=== PATIENT | male | born 1980 | race Caucasian/White ===

== ENCOUNTER 2016-10-27 17:03 | Emergency (ER) | payer OTHER ==
[2016-10-27] MEDS ORDERED: Ketorolac INJ* 30 MG/ML 1 ML VIAL IV PUSH ONE (18:25)
[2016-10-27] MEDS ORDERED: Morphine INJ* 4 MG/ML 1 ML SYRINGE IV ONE (18:25)
--- NOTE | 2016-10-27 18:34 | RAD ---
HISTORY: Limited range of motion, pain COMPARISONS: None VIEWS: 3, frontal and axial views of the left shoulder, with the left arm held in abduction. FINDINGS: BONE DENSITY: Normal. BONES: There is no displaced fracture. JOINTS: There is no arthropathy. ALIGNMENT: There is no dislocation. SOFT TISSUES: Unremarkable. OTHER FINDINGS: None. IMPRESSION: LIMITED STUDY. NO ACUTE OSSEOUS INJURY. IF SYMPTOMS PERSIST, RECOMMEND REPEAT IMAGING.
[2016-10-27] MEDS ORDERED: Diazepam SYRINGE* 5 MG/ML SYRINGE IV ONE ×2 (19:56→20:48)
[2016-10-27] MEDS ORDERED: HYDROmorphone* 1 MG/ML 1 ML SYR IV SLOW PU ONE ×2 (19:56→23:01)
--- NOTE | 2016-10-27 23:24 | ED ---
Upper Extremity Pain - HPI Summary HPI Summary: 36M presents with left shoulder dislocation today. He states that he fell onto his outstretched arm and felt a pop. He states it feels like it is dislocated. He denies any previous dislocation. He denies any numbness or tingling. He can not lower arm below 90 degrees. He is right handed. He denies any elbow or wrist pain. He has not taken anything for pain. - History of Current Complaint Chief Complaint: EDExtremityUpper Stated Complaint: LEFT SHOULDER DISLOCTION Time Seen by Provider: 10/27/16 18:24 - Allergies/Home Medications Allergies/Adverse Reactions: Allergies Allergy/AdvReac Type Severity Reaction Status Date / Time No Known Allergies Allergy Verified 10/27/16 20:24 PMH/Surg Hx/FS Hx/Imm Hx Endocrine/Hematology History: Denies: Hx Anticoagulant Therapy Cardiovascular History: Denies: Hx Myocardial Infarction Infectious Disease History: No Infectious Disease History: Denies: Traveled Outside the [place] in Last 30 Days - Family History Known Family History: Positive: Cardiac Disease - Social History Alcohol Use: Daily Substance Use Type: Reports: None Smoking Status (MU): Never Smoked Tobacco Review of Systems Negative: Fever Negative: Chest Pain Negative: Shortness Of Breath Positive: Myalgia - left shoulder pain All Other Systems Reviewed And Are Negative: Yes Physical Exam Triage Information Reviewed: Yes Vital Signs On Initial Exam: Initial Vitals Temp Pulse Resp BP Pulse Ox 98.4 F 84 20 129/72 99 10/27/16 17:11 10/27/16 17:11 10/27/16 17:11 10/27/16 17:11 10/27/16 17:11 Vital Signs Reviewed: Yes Appearance: Positive: Well-Appearing Skin: Positive: Warm, Dry Head/Face: Positive: Normal Head/Face Inspection Eyes: Positive: Normal, EOMI, BETHANIE, Conjunctiva Clear ENT: Positive: Normal ENT inspection, Pharynx normal, TMs normal Respiratory/Lung Sounds: Positive: Clear to Auscultation, Breath Sounds Present Cardiovascular: Positive: Normal, RRR Musculoskeletal: Positive: Limited @ - can not placed arm below 90 degrees, Other - good pulses, capilary refill, tenderness over anterior shoulder with mild deformity present - [place] Coma Scale Coma Scale Total: 15 Diagnostics - Vital Signs Vital Signs Temp Pulse Resp BP Pulse Ox 10/27/16 23:13 87 16 151/99 96 10/27/16 23:12 18 10/27/16 21:09 18 10/27/16 20:24 18 10/27/16 18:54 98.4 F 94 18 143/106 95 10/27/16 18:40 18 10/27/16 17:11 98.4 F 84 20 129/72 99 - Laboratory Lab Statement: Any lab studies that have been ordered have been reviewed, and results considered in the medical decision making process. - Radiology shoulder Xray Interpretation: No Acute Changes - limited study Radiology Interpretation Completed By: Radiologist shoulder post reduction Xray Interpretation: No Acute Changes - IMPRESSION: SATISFACTORY REDUCTION. HILL -SACHS DEFORMITY. INFERIOR GLENOID FRACTURE. Radiology Interpretation Completed By: Radiologist - CT shoulder CT Interpretation: Positive (See Comments) - IMPRESSION: ANTERIOR DISLOCATION WITH INFERIOR GLENOID FRACTURE AND HILL-SACHS DEFORMITY CT Interpretation Completed By: Radiologist Course/Dx - Course Course Of Treatment: 36M presents with left shoulder dislocation today. He states that he fell onto his outstretched arm and felt a pop. He states it feels like it is dislocated. He denies any previous dislocation. He denies any numbness or tingling. He can not lower arm below 90 degrees. He is right handed. He denies any elbow or wrist pain. He has not taken anything for pain. on exam unable to lower arm below 90 degrees. xray shows no dislocation. after extensive pain medication was able to get into CT. CT shows anterior dislocation. with dr garcia was able after repeated attempt relocate shoulder. told to follow up with ortho. patient understands and agrees with plan. - Diagnoses Differential Diagnosis/HQI/PQRI: Positive: Fracture (Closed), Sprain, Other - dislocation Provider Diagnoses: Dislocation of left shoulder joint Discharge - Discharge Plan Condition: Good Disposition: HOME Patient Education Materials: Shoulder Dislocation (ED) Referrals: Non Staff,Doctor [Primary Care Provider] - Sonido Lynne MD [Medical Doctor] - Additional Instructions: Keep in sling until seen by ortho Take Tylenol and ibuprofen every 6 hours as needed for pain Ice Follow up with ortho Return to ED if develop any new or worsening symptoms
[2016-10-28] MEDS ORDERED: Midazolam* 1 MG/ML 10 ML VIAL (10 MG) IV ONE ×2 (00:18→01:11)
[2016-10-28] MEDS ORDERED: fentaNYL* 50 MCG/ML 2 ML VIAL (100 MCG VIAL) IV SLOW PU ONE (00:18)
[2016-10-28] MEDS ORDERED: Flumazenil* 0.1 MG/ML 5 ML MDV ONE (00:24)
[2016-10-28] MEDS ORDERED: Naloxone* 0.4 MG/ML 1 ML VIAL ONE (00:25)
--- NOTE | 2016-10-28 03:54 | PN ---
Fe Richard SooYoung, scribed for Justen French MD on 10/28/16 at 0304 . Progress Note - Progress Note Date of Service: 10/28/16 Note: Asked to evaluate pt by ERIKA Garcia: Pt is a 36 y/o M who fell on his outstretched L hand and c/o shoulder pain. L shoulder XR read as having no fx or dislocation. However, pt was unable to extend and externally rotate his L shoulder. Pt's distal neurovascular intact. He was given sedation in the form of dilaudid and valium. A CT was then performed, which revealed an anterior dislocation of the humerus, distal neurovascular intact. Reduction procedure: Performed conscious sedation with 100mg Fentanyl and 8mg Versed. After pt was adequately sedated, he was placed supine, and his L shoulder was externally rotated and extended with satisfactory reduction of dislocated shoulder. 2 attempts were performed. Distal neurovascular was intact. Repeated XR shows satisfactory reduction of dislocated shoulder. DX: 1. Left shoulder dislocation with reduction 2. Conscious sedation. Agreed with ERIKA Garcia's plan to reduce. Refer back to Radha's document for full report. The documentation as recorded by the alissaibFe bermudez SooYoung accurately reflects the service I personally performed and the decisions made by Manolo biswas Drew, MD.
--- NOTE | 2016-10-28 07:10 | RAD ---
INDICATION: Left shoulder injury COMPARISON: Shoulder dislocation TECHNIQUE: Axial scans of the left shoulder were obtained with coronal and sagittal reconstructions FINDINGS: There is anterior-inferior dislocation of the left humerus. There is a Hill-Sachs deformity of the humeral head. There is an avulsed fragment from the inferior glenoid. The fragment is displaced posteriorly and medially. The a.C. and sternoclavicular joints. Intact. The visualized ribs and lung apex appear normal. Adjacent soft tissues are normal. IMPRESSION: ANTERIOR DISLOCATION WITH INFERIOR GLENOID FRACTURE AND HILL-SACHS DEFORMITY.
--- NOTE | 2016-10-28 07:42 | RAD ---
INDICATION: Left shoulder postreduction COMPARISON: Left shoulder October 27, 2016 TECHNIQUE: Routine frontal, Y and axial views were obtained. FINDINGS: There is satisfactory reduction. There is a Hill-Sachs deformity and there is a fracture the inferior glenoid. The AC joint is intact. The soft tissues are normal IMPRESSION: SATISFACTORY REDUCTION. HILL-SACHS DEFORMITY. INFERIOR GLENOID FRACTURE.
== END 2016-10-28 02:12 | disposition home or self-care (01) ==
LOC: ED 17:03
DX: S42.142A Displaced fracture of glenoid cavity of scapula, left shoulder, initial encounter for closed fracture (principal); W19.XXXA Unspecified fall, initial encounter; Y93.9 Activity, unspecified; Y92.9 Unspecified place or not applicable
CPT/HCPCS: 23650; 96374; 96376; 99156; 99283; J1170; J1885; J2250; J2270; J2310; J3010; J3360